=== PATIENT | male | born 1990 | race Two or more races ===

== ENCOUNTER → 2018-02-26 | Outpatient (REF) ==
[~2018-02-26] MED LIST: [UNRECOGNIZED DRUG - CODE] PO
--- NOTE | 2018-02-26 11:14 | RADIOLOGY IMAGING REPORT ---
FACILITY: [facility] [place] PATIENT NAME: Rudolph Savage : 1990 MR: [id number] V: [id number] EXAM DATE: ORDERING PHYSICIAN: RAYA SAUCEDA TECHNOLOGIST: Location: [facility] Patient: Rudolph Savage : 1990 Visit/Account:[id number] Date of Sevice: 02/26/2018 ABDOMEN/PELVIS W/O CONTRAST HISTORY: Left flank pain for five days TECHNIQUE: Axial images acquired through the abdomen/pelvis. Coronal and sagittal reformatting also performed. No IV contrast administered. Dose Lowering Technique One of the following dose optimization techniques was utilized in the performance of this exam: Autom ated exposure control; adjustment of the mA and/or kV according to the patient's size; or use of an i terative reconstruction technique. Specific details can be referenced in the facility's radiology C T exam operational policy. COMPARISON: None. FINDINGS: Visualized lung bases: Negative. Hepatobiliary: Negative. Spleen: Negative. Adrenals: Negative. Pancreas: Negative. Kidneys ureters and bladder: Negative. Genitalia: There is a coarse calcification within the prostate gland GI: The appendix is visualized and does not appear inflamed. There is no evidence of bowel obstruct ion. Tiny flecks of hyperdense material are seen in the stomach and throughout the large and small b owel which may represent opaque medication . Vessels/spaces/nodes: Negative Bones/soft tissues: Negative. Additional findings: None pertinent. IMPRESSION: No demonstration of urolithiasis, hydronephrosis or hydroureter There is a single coarse calcination within the prostate gland The appendix is visualized does not appear inflamed Tiny flecks of hyperdense material is seen in the stomach and throughout the large and small bowel wh ich may represent opaque medication such as Pepto-Bismol or other ingested opaque material. There is however no evidence of bowel obstruction Report Dictated By: Vero Ríos MD at 02/26/2018 11:01 AM Report E-Signed By: Vero Ríos MD at 02/26/2018 11:10 AM WSN:[email or web address]
== END ==
LOC: CT 06:59
PROVIDERS: ATTEND Nurse Practitioner Family
DX: R10.9 Unspecified abdominal pain (principal); R31.9 Hematuria, unspecified
CPT/HCPCS: 74176

== ENCOUNTER → 2018-05-07 | Outpatient (CLI) | payer SELFPAY ==
--- NOTE | 2018-05-07 16:43 | RADIOLOGY IMAGING REPORT ---
FACILITY: [facility] [place] PATIENT NAME: Rudolph Savage : 1990 MR: [id number] V: [id number] EXAM DATE: ORDERING PHYSICIAN: YOBANI DENT TECHNOLOGIST: Location: [facility] Patient: Rudolph Savage : 1990 Visit/Account:[id number] Date of Sevice: 05/07/2018 TESTICULAR HISTORY: Left testicular pain since January COMPARISON: None. FINDINGS: Testes: Right testicle measures 3.7 x 1.3 x 2.9 cm left testicle measures 4.5 x 1.9 x 3.1 cm Symmetr ic and unremarkable blood flow documented by color and Duplex Doppler ultrasound.. The parenchyma th roughout the right testicle appears mildly heterogeneous relative to the left. A discrete mass was n ot demonstrated Epididymides: The head epididymis on the right measures 0.7 cm on the left 0.8 cm Blood flow is unre markable in each epididymis by color Doppler ultrasound. Hydrocele: None. Varicocele: None. IMPRESSION: Right testicle appears heterogeneous relative to the left although discrete mass is not seen. Blood flow was demonstrated to both testicles. This could be related to orchitis although other testicular pathology is not excluded and clinical correlation needed to correlate with the clinical history of left testicular pain Report Dictated By: Vero Ríos MD at 05/07/2018 4:36 PM Report E-Signed By: Vero Ríos MD at 05/07/2018 4:40 PM WSN:[id number]
== END ==
LOC: US 07:08
PROVIDERS: ATTEND Nurse Practitioner Family
DX: N50.811 Right testicular pain (principal)
CPT/HCPCS: 76870

== ENCOUNTER → 2019-02-26 | Outpatient (CLI) | payer SELFPAY ==
[~2019-02-26] MED LIST changes: +ISO300 PO; -[UNRECOGNIZED DRUG - CODE] PO
--- NOTE | 2019-02-26 13:30 | RADIOLOGY IMAGING REPORT ---
FACILITY: [facility] PATIENT NAME: Rudolph Savage : 1990 MR: [id number] V: [id number] EXAM DATE: ORDERING PHYSICIAN: VOLODYMYR ZHU TECHNOLOGIST: Location: [facility] [place] Patient: Rudolph Savage : 1990 Visit/Account:[id number] Date of Sevice: 02/26/2019 Chest with lateral, 2 views. HISTORY: Positive TB test. COMPARISON: 08/06/2017. 3 images were obtained. The heart and mediastinum are unremarkable. No bulky adenopathy. Pulmonary v essels are unremarkable. The lungs are clear. The pleural surfaces are unremarkable. No pneumothorax . No lung cavities. No acute bony abnormalities. IMPRESSION: No evidence of acute cardiopulmonary disease. No evidence of tuberculosis. Report Dictated By: Min Munoz MD at 02/26/2019 1:25 PM Report E-Signed By: Min Munoz MD at 02/26/2019 1:26 PM WSN:[id number]
== END ==
LOC: RAD 12:17
PROVIDERS: ATTEND Internal Medicine
DX: R76.11 Nonspecific reaction to tuberculin skin test without active tuberculosis (principal)
CPT/HCPCS: 71045